=== PATIENT | female | born 1995 | race Caucasian/White ===

== ENCOUNTER 2020-10-30 08:32 | Emergency (ER) | payer SELFPAY ==
[~2020-10-30] VITALS: Ht 157.5 cm; Wt 54.4 kg
[2020-10-30 08:34] VITALS: Ht 157.5 cm; Wt 54.4 kg
[2020-10-30] MEDS ORDERED: MACROBID100 MG PO (09:39)
[2020-10-30 10:23] VITALS: BP 90/60
== END 2020-10-30 10:23 | disposition home or self-care (01) ==
LOC: ED 08:32
DX: O98.512 Other viral diseases complicating pregnancy, second trimester (principal); B34.9 Viral infection, unspecified; Z20.828 Contact with and (suspected) exposure to other viral communicable diseases; Z3A.16 16 weeks gestation of pregnancy
CPT/HCPCS: U0003